=== PATIENT | female | born 1990 ===

== ENCOUNTER 2017-04-11 16:06 | Emergency (ER) | payer MEDICAID, SELFPAY ==
[2017-04-11 16:11] VITALS: BMI 30.4
[2017-04-11 16:14] VITALS: RESP 18
[2017-04-11] MEDS ORDERED: Sodium Chloride 0.9% 1,000 ML IV ONE ×2 (16:27→18:05)
[2017-04-11 16:50] LABS: BASO # 0.1 K/uL (0.0-0.2); BASO % 0.8 % (0.0-2.0); EOS # 0.1 K/uL (0.0-0.7); EOS % 0.9 % (0.0-4.0); HEMATOCRIT 34.6 % (34.0-47.0); LYMPH # 2.2 K/uL (1.0-4.3); LYMPH % 24.4 % (20.0-40.0); MEAN CELL VOLUME 87.7 fL (81.0-99.0); MEAN CORPUSCULAR HEMOGLOBIN 29.3 pg (27.0-31.0); MEAN CORPUSCULAR HGB CONC 33.4 g/dL (33.0-37.0); MEAN PLATELET VOLUME 9.5 fL (7.2-11.7); MONO # 1.1 K/uL (0.0-0.8); MONO % 12.6 % (0.0-10.0); NRBC % 0.2 % (0.0-2.0); RED CELL DISTRIBUTION WIDTH 12.7 % (11.5-14.5)
[2017-04-11] MEDS ORDERED: Sodium Chloride 0.9% 1,000 ML ONE (16:55)
[2017-04-11 16:57] LABS: CHLORIDE 102 mmol/L (98-107); POTASSIUM 3.9 mmol/L (3.6-5.2); SODIUM 131 mmol/L (132-148)
[2017-04-11 16:59] LABS: ALB/GLOB RATIO 1.2 (1.0-2.1); AST/SGOT 19 U/L (14-36); BILIRUBIN,TOTAL 0.5 mg/dL (0.2-1.3); CARBON DIOXIDE 19 mmol/L (22-30); GFR AFRICAN-AMERICAN > 60; TOTAL PROTEIN 6.8 g/dL (6.3-8.3)
[2017-04-11 17:00] LABS: ALKALINE PHOSPHATASE 73 U/L (38-126); ALT/SGPT 33 U/L (9-52); BLOOD UREA NITROGEN 14 mg/dL (7-17); CALCIUM 8.5 mg/dl (8.6-10.4); GLUCOSE,RANDOM 90 mg/dL (65-105)
[2017-04-11 17:45] LABS: RBC URINE 1 /hpf (0-3); URINE BACTERIA RARE (<OCC); URINE BILIRUBIN NEGATIVE (NEGATIVE); URINE BLOOD NEGATIVE (NEGATIVE); URINE COLOR Amber (YELLOW); URINE GLUCOSE (UA) NORMAL (Normal); URINE KETONE NEGATIVE (NEGATIVE); URINE LEUKOCYTE ESTERASE NEG Leu/uL (Negative); URINE PROTEIN NEGATIVE (NEGATIVE); URINE UROBILINOGEN NORMAL mg/dL (0.2-1.0); WBC URINE 2 /hpf (0-5)
--- NOTE | 2017-04-11 19:17 | C.PDOC ---
Time Seen by Provider: 04/11/17 16:21 Chief Complaint (Nursing): Syncope History Per: Patient, Family, Public Health Staff Nurse History/Exam Limitations: language barrier Onset/Duration Of Symptoms: Days (1) Current Symptoms Are (Timing): Better Number Of Syncopal Episodes: 2 Activity At Onset Of Symptoms: Standing Associated Symptoms Preceding Syncopal Episode: Lightheadedness, Worse With Standing Seizure Or Post-ictal Symptoms: None Fall Associated With With Symptoms: No Injury As Result Of Fall Severity: Moderate Additional History Per: Prior Records - Symptoms Of CVA Recent Head Trauma: No Past Medical History Reviewed: Historical Data, Nursing Documentation, Vital Signs Vital Signs: Last Vital Signs Temp 97.8 F 04/11/17 16:13 Pulse 97 H 04/11/17 18:05 Resp 18 04/11/17 18:05 BP 120/67 04/11/17 18:05 Pulse Ox 98 04/11/17 18:05 - Medical History PMH: No Chronic Diseases Other PMH: Pt is 7 months Family History: States: Unknown Family Hx - Social History Hx Tobacco Use: No Hx Alcohol Use: No Hx Substance Use: No - Immunization History Hx Tetanus Toxoid Vaccination: No Hx Influenza Vaccination: No Hx Pneumococcal Vaccination: No Review Of Systems Except As Marked, All Systems Reviewed And Found Negative. Constitutional: Negative for: Fever Cardiovascular: Negative for: Chest Pain Respiratory: Negative for: Shortness of Breath, Hemoptysis Gastrointestinal: Negative for: Vomiting, Abdominal Pain, Diarrhea Genitourinary: Negative for: Vaginal Discharge, Vaginal Bleeding Musculoskeletal: Negative for: Neck Pain, Back Pain Skin: Negative for: Rash Neurological: Positive for: Headache. Negative for: Weakness, Numbness, Seizures Physical Exam - Physical Exam Appears: Non-toxic, No Acute Distress Skin: Normal Color, Warm, Dry, No Rash Head: Atraumatic, Normacephalic Eye(s): bilateral: Normal Inspection, PERRL, EOMI Neck: Normal ROM, Supple Cardiovascular: Rhythm Regular Respiratory: Normal Breath Sounds, No Accessory Muscle Use Gastrointestinal/Abdominal: Soft, No Tenderness, Other (Gravid) Back: No CVA Tenderness Extremity: Normal ROM, No Pedal Edema, No Calf Tenderness Neurological/Psych: Oriented x3, Normal Speech, Normal Motor, Normal Sensation ED Course And Treatment - Laboratory Results Result Diagrams: 04/11/17 16:43 04/11/17 16:43 Lab Interpretation: No Acute Changes ECG: Interpreted By Me, Viewed By Me ECG Rhythm: Sinus Rhythm, Nonspecific Changes ECG Interpretation: No Acute Changes Rate From EC O2 Sat by Pulse Oximetry: 98 Pulse Ox Interpretation: Normal Progress Note: Pt is currently asymptomatic. Reevaluation Time: 19:00 Reassessment Condition: Improved - Physician Consult Information Physician Contacted: Billy Carias (Elevator Worker ) Outcome Of Conversation: She states that based on vital signs and lab findings, no concern for pre-eclampsia. Progress - Interventions Interventions:: Observation, Intravenous fluid - Data Reviewed Data Reviewed: Lab, EKG, Old records - Patient Status Patient status: Completely improved - Continuity of Care Discussed patient case with:: Patient, ED Nurse - Patient Plan Patient Plan: Discharge, F/U with PCP Disposition Counseled Patient/Family Regarding: Studies Performed, Diagnosis, Need For Followup - Disposition Disposition: HOME/ ROUTINE Disposition Time: 19:24 Condition: IMPROVED Additional Instructions: Drink plenty of fluids. Follow up with your Elevator Worker doctor. Return to the ER if you pass out again, develop abdominal pain, bleeding, worsening of symptoms or if you have any other concerns. Instructions: Syncope (ED) Forms: [facility] [place] (Welsh) Print Language: NORTHER[place] IRISH - Clinical Impression Clinical Impression: Syncope, Dehydration,
[2017-04-11 19:41] VITALS: BP 109/70; PULSE 74; TEMP 98; O2SAT 100
--- NOTE | 2017-04-13 17:36 | CARD ---
APPROVED REPORT EKG Measurement Heart [id number] CT 130P56 [id number] <Conclusion> Normal sinus rhythm with sinus arrhythmia Normal ECG
== END 2017-04-11 19:47 | disposition home or self-care (01) ==
LOC: C.ER 16:06
DX: O26.893 Other specified pregnancy related conditions, third trimester (principal); Z3A.28 28 weeks gestation of pregnancy; E86.0 Dehydration; R55 Syncope and collapse
CPT/HCPCS: 80053; 81001; 84702; 85025; 93005; 96360; 96361; 99285; J7040

== ENCOUNTER 2017-07-06 14:21 | Inpatient (IN) | payer MEDICAID, OTHER ==
[2017-07-06] MEDS ORDERED: Lactated Ringer's 1,000 ML IV SCH (14:45)
[2017-07-06] MEDS ORDERED: Clindamycin 600mg/50ml D5W 600 MG/50 ML VIAL IVPB SCH ×3 (15:00→15:30)
[2017-07-06] MEDS ORDERED: Oxytocin 30 UNIT 30 UNITS/500 ML BAG IV SCH (15:15)
[2017-07-06 15:45] LABS: BASO # 0.1 K/uL (0.0-0.2); BASO % 0.6 % (0.0-2.0); EOS % 0.5 % (0.0-4.0); HEMOGLOBIN 12.2 g/dL (11.0-16.0); LYMPH # 1.9 K/uL (1.0-4.3); LYMPH % 23.8 % (20.0-40.0); MEAN CORPUSCULAR HEMOGLOBIN 29.8 pg (27.0-31.0); MEAN CORPUSCULAR HGB CONC 34.8 g/dL (33.0-37.0); MEAN PLATELET VOLUME 10.1 fL (7.2-11.7); MONO # 0.8 K/uL (0.0-0.8); MONO % 9.3 % (0.0-10.0); NEUT # 5.3 K/uL (1.8-7.0); NEUT % 65.8 % (50.0-75.0); NRBC % 0.1 % (0.0-2.0); RBC 4.11 Mil/uL (3.80-5.20); RED CELL DISTRIBUTION WIDTH 15.4 % (11.5-14.5)
[2017-07-06 15:56] LABS: MEAN CELL VOLUME 85.6 fL (81.0-99.0)
[2017-07-06 15:59] LABS: SQUAMOUS EPITHIAL 1 /hpf (0-5); URINE BACTERIA RARE (<OCC); URINE BILIRUBIN NEGATIVE (NEGATIVE); URINE BLOOD NEGATIVE (NEGATIVE); URINE CLARITY Clear (Clear); URINE COLOR Straw (YELLOW); URINE GLUCOSE (UA) NORMAL (Normal); URINE LEUKOCYTE ESTERASE NEG Leu/uL (Negative); URINE NITRATE NEGATIVE (NEGATIVE); URINE PROTEIN NEGATIVE (NEGATIVE); URINE UROBILINOGEN NORMAL mg/dL (0.2-1.0)
[2017-07-06] MEDS ORDERED: Oxytocin 30 UNIT 30 UNITS/500 ML BAG IV ONE (16:15)
[2017-07-06 16:19] LABS: ALB/GLOB RATIO 1.1 (1.0-2.1); ALBUMIN 3.7 g/dL (3.5-5.0); ALT/SGPT 74 U/L (9-52); AST/SGOT 43 U/L (14-36); BLOOD UREA NITROGEN 15 mg/dL (7-17); CALCIUM 9.2 mg/dl (8.6-10.4); GFR AFRICAN-AMERICAN > 60; GFR NON-AFRICAN AMERICAN > 60
[2017-07-06] MEDS ORDERED: Lidocaine 2% Inj (20ml) ONE (23:08)
[2017-07-06] MEDS ORDERED: Benzocaine/Menthol 20%-0.5% Topical Spray (60 ml) TOP PRN (23:31)
[2017-07-06] MEDS ORDERED: Oxycodone/Acetaminophen 5/325 mg Tab PO PRN (23:31)
--- NOTE | 2017-07-07 00:06 | OBDS ---
DELIVERY PERSONNEL Delivery Doctor: Brenda Hernandez MD Scrub Nurse: Melvina Staton Storage Battery Charger: Ramonita Sanders RN Resident: MATERNAL INFORMATION Delivery Anesthesia: None Medications in Delivery: Pitocin Estimated Blood Loss (ml): 200 Placenta Cultured: No Maternal Complications: None RN Comments: live baby girl born via with 9_9 Provider Comments: This 26 year old G2 now P2 delivered a viable female via over intact perineum. Head was delivered in a controlled manner. Infants shoulders and body were also delievered in a controlled manner. was placed on mothers abdomen. Infants mouth and nose was suctioned wi th bulb syringe. Cord was clamped and cut. Cord blood was collected and sent to the lab. Infant weigh t 7lbs 6oz with APGARS of 9 and 9. All sponge counts were correct. Mom and baby are recovering in sta ble condition. Dr Hernandez present for entire delivery. EBL- 200mls Rosi Mcqueen DO PGY-1. Delivery Conducted with Resident and I agree with the above. LABOR SUMMARY EDC: 07/12/2017 00:00 No. Babies in Womb: 1 Attempted: No Labor Anesthesia: None LABOR INFORMATION Reason for Induction: Not Applicable Onset of Labor: 07/06/2017 18:41 Complete Dilatation: 07/06/2017 23:04 Oxytocin: Augmentation Group B Beta Strep: Positive (Annotations: 06/19/17) Antibiotics # of Doses: 1 Antibiotics Time of Last Dose: @1607 Steroids Given: None Reason Steroids Not Administered: Not Applicable MEMBRANES Membranes Rupture Method: Artificial Rupture of Membranes: 07/06/2017 18:41 Length of Rupture (hrs): 4.62 Amniotic Fluid Color: Clear Amniotic Fluid Amount: Small Amniotic Fluid Odor: Normal STAGES OF LABOR Stage 1 hrs: 4 Stage 1 min: 23 Stage 2 hrs: 0 Stage 2 min: 14 Stage 3 hrs: 0 Stage 3 min: 5 Total Time in Labor hrs: 4 Total Time in Labor min: 42 VAGINAL DELIVERY Episiotomy: None Laceration Extension: N/A Laceration Type: None Laceration Repair: Not Applicable Initial Vag Sponge Count: 10 Final Vag Sponge Count: 10 Initial Vag Sharps Count: 0 Final Vag Sharps Count: 0 Sponge Count Correct: Yes; Vaginal Sweep Performed Sharps Count Correct: Yes BABY A INFORMATION Delivery Date/Time: 07/06/2017 23:18 Method of Delivery: Vaginal Born in Route : No : N/A Forceps: N/A Vacuum Extraction: N/A Shoulder Dystocia : No SHOULDER DYSTOCIA BABY A Infant Delivery Date/Time: 07/06/2017 23:18 PRESENTATION/POSITION BABY A Presentation: Cephalic Cephalic Presentation: Vertex Vertex Position: Left Occipital Anterior Breech Presentation: N/A PLACENTA INFORMATION BABY A Placenta Delivery Time : 07/06/2017 23:23 Placenta Method of Delivery: Spontaneous Placenta Status: Delivered SCORES BABY A Heart Rate 1 min: >100 bpm Resp Effort 1 min: Good Cry Reflex Irritability 1 min: Cough or Sneeze or Pulls Away Muscle Tone 1 min: Active Motion Color 1 min: Body Beason, Extremities Blue SCORE 1 MIN: 9 Heart Rate 5 min: >100 bpm Resp Effort 5 min: Good Cry Reflex Irritability 5 min: Cough or Sneeze or Pulls Away Muscle Tone 5 min: Active Motion Color 5 min: Body Beason, Extremities Blue SCORE 5 MIN: 9 INFANT INFORMATION BABY A Gestational Age at Delivery: 39.1 Gestational Status: Term Outcome : Liveborn Infant Condition : Stable Infant Sex: Female IDENTIFICATION/MEDS BABY A ID Band Number: [id number] Sensor Number: [id number] WEIGHT/LENGTH BABY A Infant Birthweight (gms): 3345 Weight (lb): 7 Infant Weight (oz): 6 Infant Length Inches: 19.00 Length cms: 48.3 CORD INFORMATION BABY A No. Cord Vessels: 3 Nuchal Cord : N/A Cord Blood Taken: Yes Infant Suction: Mouth; Nose; Pharynx ASSESSMENT BABY A Complications: None Physical Findings at Delivery: Within Normal Limits Respirations: Appears Normal Carpet Yarn Winder Operator/ALS Called : No Infant Care By: Ayaan Sanders RN Transferred To: Remains with Mother
[2017-07-07 07:53] LABS: BASO # 0.1 K/uL (0.0-0.2); BASO % 0.5 % (0.0-2.0); EOS % 0.2 % (0.0-4.0); HEMOGLOBIN 11.5 g/dL (11.0-16.0); LYMPH # 1.9 K/uL (1.0-4.3); LYMPH % 14.5 % (20.0-40.0); MEAN CELL VOLUME 85.7 fL (81.0-99.0); MEAN CORPUSCULAR HEMOGLOBIN 29.5 pg (27.0-31.0); MEAN CORPUSCULAR HGB CONC 34.4 g/dL (33.0-37.0); MEAN PLATELET VOLUME 10.3 fL (7.2-11.7); MONO % 7.5 % (0.0-10.0); NEUT # 10.3 K/uL (1.8-7.0); NEUT % 77.3 % (50.0-75.0); NRBC % 0.1 % (0.0-2.0); RBC 3.91 Mil/uL (3.80-5.20); RED CELL DISTRIBUTION WIDTH 15.4 % (11.5-14.5)
[2017-07-07 07:56] LABS: WHITE BLOOD COUNT 13.3 K/uL (4.8-10.8)
--- NOTE | 2017-07-07 09:51 | OBPPN ---
Datetime: 07/07/2017 09:15 PP Pain Prov: Within normal limits PP Nausea Prov: Denies PP Flatus Prov: Yes PP BM Prov: No PP Heart Prov: Normal PP Lungs Prov: Normal PP Abdomen/Uterus Prov: Normal PP Lochia Prov: Normal PP Extremities Prov: Normal PP C/S Incision Prov: Not Applicable PP Progress Prov: Not Applicable PP Comments Phys Exam Prov: Abdomen: Soft, nontender, +BSx4, fundus firm and 1 fingerbreath above um bilicus. Moderate lochia rubra PP Impression Prov: Normal progression PP Plan Prov: Continue present management PP Progress Note Prov: Patient seen and examined at bedside. Patient has lower abdominal pain and va ginal soreness which she rates 3/10. Patient is having more bleeding than her normal menstrual period and has gone through 3 pads. Patient able to urinate this morning. Patient is passing gas, but has n ot had a bowel movement. Patient is breast feeding and plans to supplement with formula. Patient indira es any nausea, vomiting, or chest pain, SOB, fevers or chills. Labs: 13.3>11.5/33.5<177 VS: T: 99.7, P: 80, BP: 108/71, R:20, O2: 97%RA PE: Gen: NAD, AAOx3 Cardio: RRR, S1, S2 Pulm: CTA bilaterally Abd: soft, mild tenderness, + BS x 4, firm fundus 1 fingerbreath above umbilicus A/P: 26y/o F s/p PPD#1 1. Stable, afebrile 2. Pain control with Percocet and Motrin 3. Encourage ambulation and hydration 4. Encourage breast feeding 5. Continue post- management 6. Plans discussed with attending Lora Desai, PGY1 Attending Note: patient seen and evaluated with Resident. I agree with the above. Initially, arvin ent was hesitant to ; after some counseling, she agrees to attempt. Patient otherwise st able. Plan: 1) as above 2) anticipate discharge home 07/08/17 Vital Signs Provider PP: Reviewed
--- NOTE | 2017-07-07 13:31 | OBHP ---
Datetime: 07/06/2017 18:45 FHR - Baseline A Provider: 125 Contraction Comments Provider: q2-3 min Vital Signs Provider: Reviewed; Within Normal Limits NICHD Variability Prov Fetus A: Moderate 6-25bpm NICHD Accel Fetus A IP Provider: [id number] FHR Category Provider Fetus A: Category I NICHD Decel Fetus A IP Provider: None Dilatation, Provider: 3-4 Effacement, Provider: 60 Station, Provider: -3 Datetime: 07/06/2017 15:35 IP Adm Impression: Term, intrauterine ; No Active Labor IP Chief Complaint Other: Cholestasis of IP Adm Impression Other: Elevated Bile Acids IP Admit Plan: Admit to unit; Initiate labor protocol IP Admit Plan Other: Prolonged Monitoring Admit Comment, IP Provider: Patient is a 26 year old at 39w1d [place] 07/12/17 presents to [facility] fr [facility] clinic for evaluation. Patient is on Ursodiol 300mg PO BID for Cholestasis of . Offers no complaints at this time. Endorses +FM, denies CTX, VB, LOF. Patient goes to [facility] for care . Issues: Cholestasis of - on Ursodiol 300mg PO BID PPD+, CXR negative GBS positive OB Hx: 1. 2010 at 38 weeks, 7lbs, female infant, no complications 2. 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 Hx: LMP: 10/05/2016 Triad: 12/regular/5 days Denies hx of fibroids, ovarian cysts, STIs Denies hx of abnormal pap smears Allergies: PCN (itchiness) Medications: PNV, Iron, Ursodiol Medical Hx: Denies Surgical Hx: Denies Social Hx: Denies alcohol, tobacco, drug use; lives with boyfriend, not employed Family Hx: Paternal Grandmother - DM, Mom - healthy, Father - healthy PE: See above A/P: 26 year old at 39w1d presents with cholestasis of -Will admit to unit for Induction per MFM (Dr Sheehan) recommendation -Admission labs: CBC, CMP, UA, T+S -Lactated Ringers at 125cc/hr -CEFM and TOCO -Pitocin for augmentation -GBS positive - Clindamycin 900mg IV Q8H until delivery -Anesthesia consult prn -Anticipate vaginal delivery -Plan discussed with attending Rosi Mcqueen DO PGY-1 Pt seen and evaluated with resident and I agree with the above. Pelvic Type - PN: Adequate Extremities - PN: Normal Abdomen - PN: Normal Back - PN: Normal Breast - PN: Normal Lungs - PN: Normal Heart - PN: Normal Thyroid - PN: Normal Neurologic - PN: Normal HEENT - PN: Normal General - PN: Normal Presentation-Admit: Vertex Membranes, Provider: Edith Laird, ACOG Physical Exam: VSS Gen: AAOx3 Abd: Soft, gravid Ext: No clubbing, cyanosis, edema SVE: 3-4/50/-3 Gestation - Est Wks by US: 39.1 IP Hx Assessment: The History has been Reviewed and is Current EGA AdmitDate IP: 39.1 IP Chief Complaint: Maternal discomfort; Other Genitourinary Exam: Normal DTRs - PN: Normal
[2017-07-08 08:24] VITALS: BP 121/82; PULSE 82; RESP 18; TEMP 97; O2SAT 98
--- NOTE | 2017-07-08 08:56 | OBPPN ---
Datetime: 07/08/2017 08:52 PP Pain Prov: Within normal limits PP Nausea Prov: Denies PP Flatus Prov: Yes PP Breasts Prov: Normal PP Heart Prov: Normal PP Lungs Prov: Normal PP Abdomen/Uterus Prov: Normal PP Lochia Prov: Normal PP Vulva/Perineum Prov: Normal PP CVA Tenderness Prov: Normal PP Extremities Prov: Normal PP Comments Phys Exam Prov: Abd: Soft, NT , BS- present UT- Firm, well contracted. PP Impression Prov: Normal progression PP Plan Prov: Discharge PP Progress Note Prov: S/P , PPD #2 Clinically Stable. Plan: D/C Home Vital Signs Provider PP: Reviewed
[2017-07-08] MEDS ORDERED: Influenza Vaccine 60 mcg/0.5 mL SYR (4YR UP) IM ONE (09:15)
--- NOTE | 2017-07-10 10:00 | OBDCSUM ---
Datetime: 07/08/2017 08:54 Discharged to, Provider: Home Follow up at, Provider: [facility] Disch Instr Activity: Normal activity Disch Instr Diet: Regular Discharge Instructions, Provider: Routine instructions given Discharge Diagnosis, Provider: Term Delivered Discharge Time: 07/08/2017 08:54 Follow up in weeks, Provider: 6 weeks Disch Referrals: None Contraception discussed, Prov: Yes Discharge Comment, Provider: S/P , Clinically Stable Discharge Diagnosis Prov Other: S/P , Clinically Stable
== END 2017-07-08 11:20 | disposition home or self-care (01) | DRG 775 ==
LOC: C.EROB 14:21 → C.4D 14:45 → C.4M 07-07 01:00
PROVIDERS: ADMIT Obstetrics & Gynecology; ATTEND Obstetrics & Gynecology
PROC: 10E0XZZ Delivery of Products of Conception, External Approach (ICD-10-PCS; principal; 2017-07-07)
DX: O26.62 Liver and biliary tract disorders in childbirth (principal); K83.1 Obstruction of bile duct; Z37.0 Single live birth; Z3A.39 39 weeks gestation of pregnancy; O99.824 Streptococcus B carrier state complicating childbirth; Z83.3 Family history of diabetes mellitus